=== PATIENT | female | born 2000 | race Caucasian/White ===

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

== ENCOUNTER → 2018-01-16 | Outpatient (CLI) | payer OTHER ==
--- NOTE | 2018-01-16 15:15 | US ---
EXAMINATION TYPE: Transabdominal DATE OF EXAM: 11/25/17 COMPARISON: NONE CLINICAL HISTORY: Z36 confirm dates. EXAM PERFORMED: Transabdominal (TA) EXAM MEASUREMENTS: GESTATIONAL AGE / DATING Physician Established: Not yet established Dates by LMP: LMP unknown Dates by First Scan: No previous this is first scan Dates by Current Scan for: (12 weeks/0 days) EDC: 07/31/2018 MATERNAL ANATOMY Uterus: 14.4 x 5.6 x 11.5 cm Right Ovary: 5.2 x 3.0 x 2.5 cm Left Ovary: 3.2 x 2.8 x 2.4 cm Post CDS / Adnexa: wnl Presence of free fluid: No Presence of corpus luteal cyst: No Presence of subchorionic bleed: Yes, left of the gestational sac measuring 1.4 x 0.5 x 1.1 cm GESTATION / SURVEY CRL: 5.3 cm (12 weeks/0 days) Heart Rate: 165 bpm Rhythm: Normal IUP: Viable IUP Date of LMP: Unknown Beta HcG (if available): Not available at this time Viable IUP with an MIKA of 07/31/2018 IMPRESSION: 1. Single intrauterine gestation estimated at 12 weeks 0 days gestation based on crown-rump length. T his would have a calculated EDC of 07/31/2018 based on crown-rump length. Cardiac activity measures 16 5 bpm.
== END | disposition home or self-care (01) ==
LOC: RADUSWWP 08:58
PROVIDERS: ATTEND Obstetrics & Gynecology
DX: Z36.89 Encounter for other specified antenatal screening (principal); Z3A.12 12 weeks gestation of pregnancy
CPT/HCPCS: 76801

== ENCOUNTER 2018-07-31 06:00 | Inpatient (IN) | payer OTHER ==
[2018-07-31] MEDS ORDERED: LIDOCAINE 0.5% (PF) 5 MG/ML (50 ML SDV) SQ PRN (06:56)
[2018-07-31] MEDS ORDERED: METHYLERGONOVINE 0.2 MG/ML 1 ML AMP IM PRN (06:56)
[2018-07-31] MEDS ORDERED: CARBOPROST TROMETHAMINE 250 MCG/ML 1 ML AMP IM PRN (06:56)
[2018-07-31] MEDS ORDERED: OXYTOCIN 10 UNIT/ML 1 ML VIAL IM PRN (06:56)
[2018-07-31] MEDS ORDERED: TERBUTALINE 1 MG/ML VIAL SQ PRN (06:56)
[2018-07-31] MEDS ORDERED: OXYTOCIN 20 UNITS/1000 ML NS 1,000 ML IV SCH ×2 (07:00→15:45)
[2018-07-31 07:08] LABS: Basophils % (A) 0 %; Eosinophils # (A) 0.2 k/uL (0-0.7); Eosinophils % (A) 2 %; HCT 37.4 % (34.0-46.0); HGB 11.9 gm/dL (11.4-16.0); Lymphocytes % (A) 30 %; MCH 28.5 pg (25.0-35.0); MCHC 31.9 g/dL (31.0-37.0); MCV 89.2 fL (80.0-100.0); Mean Platelet Volume 8.4; Monocytes # (A) 0.5 k/uL (0-1.0); Monocytes % (A) 5 %; Neutrophils # (A) 6.1 k/uL (1.3-7.7); Neutrophils % (A) 60 %; Platelet Count 200 k/uL (150-450); RBC 4.19 m/uL (3.80-5.40); RDW 14.2 % (11.5-15.5); WBC 10.1 k/uL (4.0-11.0)
[2018-07-31] MEDS: LACTATED RINGERS 1,000 ML IV SCH ×3 (07:12→23:52)
[2018-07-31 07:27] VITALS: BMI 35.9
[2018-07-31] MEDS ORDERED: ROPIVACAINE 5MG/ML 20ML VIAL ONE (11:52)
[2018-07-31] MEDS ORDERED: SODIUM CHLORIDE 0.9% 100 ML BAG ONE (11:52)
[2018-07-31] MEDS ORDERED: fentaNYL (PF) 50 MCG/ML 5 ML AMP ONE (11:52)
[2018-07-31] MEDS ORDERED: WITCH HAZEL 1 EACH MED..PAD TOPICAL PRN (15:33)
[2018-07-31] MEDS ORDERED: SIMETHICONE 80 MG CHEWABLE PO PRN (15:33)
[2018-07-31] MEDS ORDERED: ACETAMINOPHEN TAB 325 MG TAB PO PRN (15:33)
[2018-07-31] MEDS ORDERED: BENZOCAINE/MENTHOL SPRAY 1 GM/SPRAY AEROSOL TOPICAL PRN (15:33)
[2018-07-31] MEDS ORDERED: MEASLES-MUMPS-RUBELLA VACC/PF 12,500 UNIT/0.5 ML VIAL SQ ONE (15:33)
--- NOTE | 2018-07-31 17:29 | P.HPOB ---
History of Present Illness H&P Date: 07/31/18 Chief Complaint: Intrauterine at term: Induction of labor Jerilyn is a 17-year-old at 40 weeks gestation arise for induction of labor. She was dilated to approximately 1/2-2 cm 80% effaced -2 station. Artificial rupture membranes was performed and clear fluid is noted. There is a category 1 tracing. Her course overall has been unremarkable and she is feeling well at this time. . GBS was negative. Pertinent labs could A+ blood type Rh and it was negative , rubella is nonimmune, hepatitis B surface antigen was negative. VDRL was also nonreactive. She is aware of slight increased risk for need for section with induction of labor but overall she is doing well at this time. All questions are answered for her at this time. Past Medical History Past Medical History: No Reported History History of Any Multi-Drug Resistant Organisms: None Reported Past Surgical History: No Surgical Hx Reported Past Anesthesia/Blood Transfusion Reactions: No Reported Reaction Past Psychological History: No Psychological Hx Reported Smoking Status: Never smoker Past Alcohol Use History: None Reported Past Drug Use History: None Reported - Past Family History Father Family Medical History: No Reported History Medications and Allergies Home Medications Medication Instructions Recorded Confirmed Type No Known Home Medications 07/31/18 07/31/18 History Allergies Allergy/AdvReac Type Severity Reaction Status Date / Time amoxicillin Allergy Unknown Verified 07/31/18 06:55 Childhood Penicillins Allergy Unknown Verified 07/31/18 06:55 Childhood Exam Osteopathic Statement: *. No significant issues noted on an osteopathic structural exam other than those noted in the History and Physical/Consult. Vital Signs Temp Pulse Resp BP Pulse Ox 07/31/18 16:10 105 H 16 126/69 07/31/18 15:40 90 16 126/62 07/31/18 15:10 99 16 128/65 07/31/18 14:55 100 16 126/63 07/31/18 14:40 100 16 126/63 07/31/18 14:25 95 16 136/74 07/31/18 14:10 117 H 16 150/85 07/31/18 06:54 97.3 F L 106 H 16 121/81 100 Intake and Output 07/31/18 07/31/18 07/31/18 06:59 14:59 22:59 Output Total 0 0 Balance 0 0 Output: Urine 0 0 Straight 0 Emesis 0 0 Other: # Voids 0 1 # Bowel Movements 0 0 # Emeses 0 Weight 94.801 kg - OBG Physical Exam Breast: both: normal (no masses) Abdomen: bowel sounds normal, no diffuse tenderness, no bruit present, no guarding noted, no hepatomegaly, no splenomegaly, no mass Vulva: both: normal Vagina: normal moisture, no discharge Cervix: no lesion, no discharge Uterus: normal size, normal contour Adnexa: both: normal Anus/Rectum: normal perianal skin, no rectal mass, no hemorrhoids, heme negative Results Result Diagrams: 07/31/18 07:00
--- NOTE | 2018-07-31 17:31 | P.PROBDLV ---
Vaginal Delivery Note - . Vaginal Delivery Note: Patient progressed complete and pushing with spontaneous vaginal delivery of a viable female over a third-degree perineal laceration. During the latter stages of her pushing there was some decelerations in the heart rate and due to the low the baby was were some loss of heart rate on the monitor therefore an ISL was placed. Patient was having clear variable decelerations during her pushing phase the did recover rapidly once she stopped pushing. Oxygen was provided to the mother. Once baby's head was delivered a very tight nuchal cord was noted despite attempts at delivering the baby either through or bringing the cord over the head this was not possible therefore the cord was double clamped and cut and baby was rapidly delivered from that point forward. Baby was delivered from left occiput anterior position. Once baby was delivered mouth nares were bulb suctioned and baby was placed on mother's abdomen where the umbilical cord was clamped cut usual fashion. Placenta was then delivered intact and Pitocin was added to the IV. Once this was accomplished local anesthetic was injected into the peritoneum and it was repaired in a two-step process first by reapproximate some of the deep tissues with a small needle 3-0 Vicryl and then closing the remainder of the laceration as an episiotomy. Once this with was accomplished mother and was doing well. scores were 36 and 8 at one and 5 and 10 minutes and weight was 7 lbs. 10 oz. Baby was taken initially to special care nursery for evaluation.
[2018-07-31] MEDS: IBUPROFEN 600 MG TAB PO PRN (17:57)
[2018-07-31] MEDS: SENNOSIDES-DOCUSATE SODIUM 1 EACH TAB PO SCH (20:25)
[2018-08-01] MEDS: IBUPROFEN 600 MG TAB PO PRN ×2 (01:26→16:12)
[2018-08-01 07:20] LABS: Basophils % (A) 0 %; Eosinophils # (A) 0.1 k/uL (0-0.7); Eosinophils % (A) 1 %; HCT 31.1 % (34.0-46.0); HGB 10.1 gm/dL (11.4-16.0); Lymphocytes # (A) 2.8 k/uL (1.0-4.8); Lymphocytes % (A) 28 %; MCH 29.5 pg (25.0-35.0); MCHC 32.4 g/dL (31.0-37.0); Mean Platelet Volume 8.6; Monocytes # (A) 0.6 k/uL (0-1.0); Monocytes % (A) 6 %; Neutrophils # (A) 6.3 k/uL (1.3-7.7); Neutrophils % (A) 62 %; Platelet Count 155 k/uL (150-450); RBC 3.42 m/uL (3.80-5.40); RDW 14.2 % (11.5-15.5); WBC 10.1 k/uL (4.0-11.0)
[2018-08-01] MEDS: SENNOSIDES-DOCUSATE SODIUM 1 EACH TAB PO SCH (08:00)
[2018-08-01 09:16] VITALS: RESP 18
--- NOTE | 2018-08-01 11:35 | P.DS ---
Providers Date of admission: 07/31/18 06:39 Expected date of discharge: 08/01/18 Attending physician: Jim Strickland Primary care physician: Stated None Hospital Course: Jerilyn is doing very well day 1. She is ambulating, voiding, tolerating her diet. She voices no complaints. Vital signs are stable and afebrile. Heart regular, lungs clear, extremities are without pain. Abdomen is soft uterus is firm. Lochia is reported light. Her only issue thus far is that her back hurts from where she had multiple epidural attempts. She plans to be discharged home today. Prescription for Motrin and Tylenol No. 3 and sent to the pharmacy. All questions were answered for her prior to discharge. Discharge instructions were thoroughly reviewed. Follow-up with me in 6 weeks. Patient Condition at Discharge: Good Plan - Discharge Summary New Discharge Prescriptions: New Ibuprofen [Motrin] 600 mg PO Q6HR PRN #30 tab PRN Reason: Pain Acetaminophen-Codeine 300-30mg [Tylenol #3] 1 tab PO Q4H PRN #20 tablet PRN Reason: Pain Discharge Medication List Acetaminophen-Codeine 300-30mg [Tylenol #3] 1 tab PO Q4H PRN #20 tablet [Rx] Ibuprofen [Motrin] 600 mg PO Q6HR PRN #30 tab 08/01/18 [Rx] Follow up Appointment(s)/Referral(s): Jim Strickland DO [Doctor of Osteopathic Medicine] - 1 Week Activity/Diet/Wound Care/Special Instructions: No heavy lifting, limit stairs and driving, and pelvic rest. If any high temperatures, heavy bleeding, or severe pain call my office Discharge Disposition: HOME SELF-CARE
[2018-08-01 16:19] VITALS: BP 105/58; PULSE 116; TEMP 98.7
== END 2018-08-01 19:30 | disposition home or self-care (01) | DRG 768 ==
LOC: 4FBP 06:39
PROVIDERS: ADMIT Obstetrics & Gynecology; ATTEND Obstetrics & Gynecology
PROC: 10E0XZZ Delivery of Products of Conception, External Approach (ICD-10-PCS; principal; 2018-07-31)
PROC: 0DQR0ZZ Repair Anal Sphincter, Open Approach (ICD-10-PCS; 2018-07-31)
PROC: 0W8NXZZ Division of Female Perineum, External Approach (ICD-10-PCS; 2018-07-31)
PROC: 00HU33Z Insertion of Infusion Device into Spinal Canal, Percutaneous Approach (ICD-10-PCS; 2018-07-31)
PROC: 3E0R3BZ Introduction of Anesthetic Agent into Spinal Canal, Percutaneous Approach (ICD-10-PCS; 2018-07-31)
PROC: 3E0R33Z Introduction of Anti-inflammatory into Spinal Canal, Percutaneous Approach (ICD-10-PCS; 2018-07-31)
DX: O69.1XX0 Labor and delivery complicated by cord around neck, with compression, not applicable or unspecified (principal); Z37.0 Single live birth; O70.20 Third degree perineal laceration during delivery, unspecified; O76 Abnormality in fetal heart rate and rhythm complicating labor and delivery; Z3A.40 40 weeks gestation of pregnancy
CPT/HCPCS: 85025; 86850; 86900; 86901

== ENCOUNTER → 2019-04-20 | Outpatient (CLI) | payer OTHER ==
--- NOTE | 2019-04-20 14:59 | US ---
EXAMINATION TYPE: Transabdominal DATE OF EXAM: 04/20/2019 2:30 PM COMPARISON: NONE CLINICAL HISTORY: Z36 Confirm dates and viability. EXAM PERFORMED: Transabdominal (TA) EXAM MEASUREMENTS: GESTATIONAL AGE / DATING Physician Established: Not yet established Dates by LMP: Patient unsure of date Dates by First Scan: No previous this is first scan Dates by Current Scan for: ( 13 weeks/4 days) EDC: 10/22/19 MATERNAL ANATOMY Uterus: 17.2 x 5.3 x 10.6cm Right Ovary: 2.5 x 1.6 x 2.1cm Left Ovary: 2.9 x 1.9 x 1.8cm Post CDS / Adnexa: wnl Presence of free fluid: no GESTATION / SURVEY CRL: 7.4 (13 weeks/4 days) Yolk Sac (normal less than 6mm): not seen Heart Rate: 163 bpm Rhythm: Normal IUP: Live IUP Nuchal Translucency 10-14wks (normal less than 3mm): Date of LMP: patient can't remember Beta HcG (if available): Not available at this time IMPRESSION: Single live intrauterine with a sonographic age of 13 weeks and 4 days and estimated date o f delivery of 10/22/2019. Heart rate of 163 bpm. No complicating process is seen at this time.
== END | disposition home or self-care (01) ==
LOC: RADUSWWP 13:37
PROVIDERS: ATTEND Obstetrics & Gynecology
DX: Z34.01 Encounter for supervision of normal first pregnancy, first trimester (principal); Z3A.13 13 weeks gestation of pregnancy
CPT/HCPCS: 76801

== ENCOUNTER 2019-05-17 12:56 | Emergency (ER) | payer OTHER ==
[2019-05-17 13:30] VITALS: BP 106/67; PULSE 100; RESP 18; TEMP 98.2
[2019-05-17] MEDS ORDERED: SODIUM CHLORIDE 0.9% 1,000 ML IV STA (14:18)
--- NOTE | 2019-05-17 14:20 | ED ---
General Adult HPI - General Chief complaint: Abdominal Pain Stated complaint: cramping/17.5 wks preg Time Seen by Provider: 05/17/19 13:53 Source: patient, RN notes reviewed Mode of arrival: ambulatory Limitations: no limitations - History of Present Illness Initial comments: 18-year-old female currently 17 weeks presents to the emergency department for cramping. Patient had some cramping abdominal discomfort yesterday throughout the day. Denies any bleeding vaginally. Patient old her PUMPMAN today who offered to do heart tones in the office or send her to the ER for an ultrasound. Patient states she wanted to have an ultrasound so came here. Denies any cramping today whatsoever. Denies any vaginal bleeding today. States she just wants to make sure everything is okay with her baby.Patient has no other complaints at this time including shortness of breath, chest pain, abdominal pain, nausea or vomiting, headache, or visual changes. - Related Data Home Medications Medication Instructions Recorded Confirmed No Known Home Medications 05/17/19 05/17/19 Allergies Allergy/AdvReac Type Severity Reaction Status Date / Time amoxicillin Allergy Unknown Verified 05/17/19 14:10 Childhood Penicillins Allergy Unknown Verified 05/17/19 14:10 Childhood Review of Systems ROS Statement: Those systems with pertinent positive or pertinent negative responses have been documented in the HPI. ROS Other: All systems not noted in ROS Statement are negative. Past Medical History Past Medical History: No Reported History History of Any Multi-Drug Resistant Organisms: None Reported Past Surgical History: No Surgical Hx Reported Past Anesthesia/Blood Transfusion Reactions: No Reported Reaction Past Psychological History: No Psychological Hx Reported Smoking Status: Never smoker Past Alcohol Use History: None Reported Past Drug Use History: None Reported - Past Family History Father Family Medical History: No Reported History General Exam Limitations: no limitations General appearance: alert, in no apparent distress Head exam: Present: atraumatic, normocephalic, normal inspection Eye exam: Present: normal appearance, PERRL, EOMI. Absent: scleral icterus, conjunctival injection, periorbital swelling ENT exam: Present: normal exam, mucous membranes moist Neck exam: Present: normal inspection, full ROM. Absent: tenderness, me ningismus, lymphadenopathy Respiratory exam: Present: normal lung sounds bilaterally. Absent: respiratory distress, wheezes, rales, rhonchi, stridor Cardiovascular Exam: Present: regular rate, normal rhythm, normal heart sounds. Absent: systolic murmur, diastolic murmur, rubs, gallop, clicks GI/Abdominal exam: Present: soft, normal bowel sounds. Absent: distended, tenderness, guarding, rebound, rigid Neurological exam: Present: alert Psychiatric exam: Present: normal affect, normal mood Course Vital Signs 05/17/19 13:27 Temperature 98.2 F Pulse Rate 100 Respiratory 18 Rate Blood Pressure 106/67 O2 Sat by Pulse 97 Oximetry - Reevaluation(s) Reevaluation #1: 05/17/19 14:21 Patient refuses pelvic stating she is here for an ultrasound and does not want a pelvic. Does agree to blood work. Medical Decision Making - Medical Decision Making 18-year-old female presents for abdominal cramping yesterday. Patient is 17.5 weeks . No vaginal bleeding. No cramping at this time. Patient presents for ultrasound specifically. States her OB sent her over for ultrasound. She refused pelvic. Exam is documented. Ultrasound shows a single viable IUP with a heart rate of 162. Patient did not want to wait for results. Patient will follow up with her OB. - Lab Data Result diagrams: 05/17/19 14:40 05/17/19 14:40 Lab Results 05/17/19 05/17/19 05/17/19 Range/Units 14:20 14:40 14:40 WBC 14.7 H (4.0-11.0) k/uL RBC 4.56 (3.80-5.40) m/uL Hgb 13.6 (11.4-16.0) gm/dL Hct 40.3 (34.0-46.0) % MCV 88.2 (80.0-100.0) fL MCH 29.7 (25.0-35.0) pg MCHC 33.7 (31.0-37.0) g/dL RDW 13.6 (11.5-15.5) % Plt Count 179 (150-450) k/uL Neutrophils % 67 % Lymphocytes % 23 % Monocytes % 4 % Eosinophils % 4 % Basophils % 1 % Neutrophils # 9.8 H (1.3-7.7) k/uL Lymphocytes # 3.3 (1.0-4.8) k/uL Monocytes # 0.6 (0-1.0) k/uL Eosinophils # 0.5 (0-0.7) k/uL Basophils # 0.1 (0-0.2) k/uL Sodium 137 (137-145) mmol/L Potassium 4.0 (3.5-5.1) mmol/L Chloride 109 H (98-107) mmol/L Carbon Dioxide 18 L (22-30) mmol/L Anion Gap 10 mmol/L BUN 7 (7-17) mg/dL Creatinine 0.46 L (0.52-1.04) mg/dL Est GFR (CKD-EPI)AfAm >90 (>60 ml/min/1.73 sqM) Est GFR (CKD-EPI)NonAf >90 (>60 ml/min/1.73 sqM) Glucose 71 L (74-99) mg/dL Calcium 9.1 (8.4-10.2) mg/dL Total Bilirubin 0.4 (0.2-1.3) mg/dL AST 26 (14-36) U/L ALT 12 (9-52) U/L Alkaline Phosphatase 65 (38-126) U/L Total Protein 7.0 (6.3-8.2) g/dL Albumin 3.8 (3.5-5.0) g/dL Urine Color Yellow Urine Appearance Cloudy H (Clear) Urine pH 5.5 (5.0-8.0) Ur Specific [place] 1.017 (1.001-1.035) Urine Protein Negative (Negative) Urine Glucose (UA) Negative (Negative) Urine Ketones Negative (Negative) Urine Blood Negative (Negative) Urine Nitrite Negative (Negative) Urine Bilirubin Negative (Negative) Urine Urobilinogen <2.0 (<2.0) mg/dL Ur Leukocyte Esterase Small H (Negative) Urine RBC 1 (0-5) /hpf Urine WBC 2 (0-5) /hpf Ur Squamous Epith Cells 15 H (0-4) /hpf Urine Bacteria Rare H (None) /hpf Urine Mucus Few H (None) /hpf Disposition Clinical Impression: Abdominal pain in Disposition: HOME SELF-CARE Condition: Good Instructions (If sedation given, give patient instructions): Abdominal Pain in (ED) Additional Instructions: Please follow up on ultrasound results as well as with OB. Please return if you have any worsening symptoms. Is patient prescribed a controlled substance at d/c from ED?: No Referrals: Antony Ozuna MD [Primary Care Provider] - 1-2 days Time of Disposition: 15:33
[2019-05-17 14:38] LABS: Appearance,Urine Cloudy (Clear); Bacteria,Urine Rare /hpf; Bilirubin,Urine Negative (Negative); Blood,Urine Negative (Negative); Color,Urine Yellow; Glucose,Urine (UA) Negative (Negative); Ketones,Urine Negative (Negative); Leukocyte Esterase,Urine Small (Negative); Mucus,Urine Few /hpf; Nitrite,Urine Negative (Negative); PH, Urine 5.5 (5.0-8.0); Protein,Urine Negative (Negative); RBC,Urine 1 /hpf (0-5); Specific Gravity,Urine 1.017 (1.001-1.035); Squamous Epithelial Cell,Urine 15 /hpf (0-4); Urobilinogen,Urine <2.0 mg/dL (<2.0); WBC,Urine 2 /hpf (0-5)
[2019-05-17 14:53] LABS: Basophils # (A) 0.1 k/uL (0-0.2); Basophils % (A) 1 %; Eosinophils # (A) 0.5 k/uL (0-0.7); Eosinophils % (A) 4 %; HCT 40.3 % (34.0-46.0); HGB 13.6 gm/dL (11.4-16.0); Lymphocytes # (A) 3.3 k/uL (1.0-4.8); Lymphocytes % (A) 23 %; MCH 29.7 pg (25.0-35.0); MCHC 33.7 g/dL (31.0-37.0); MCV 88.2 fL (80.0-100.0); Mean Platelet Volume 7.7; Monocytes # (A) 0.6 k/uL (0-1.0); Monocytes % (A) 4 %; Neutrophils # (A) 9.8 k/uL (1.3-7.7); Neutrophils % (A) 67 %; Platelet Count 179 k/uL (150-450); RBC 4.56 m/uL (3.80-5.40); RDW 13.6 % (11.5-15.5); WBC 14.7 k/uL (4.0-11.0)
[2019-05-17 15:01] LABS: ALT 12 U/L (9-52); AST 26 U/L (14-36); African American GFR (CKD) >90 (>60 ml/min/1.73 sqM); Albumin 3.8 g/dL (3.5-5.0); Alkaline Phosphatase 65 U/L (38-126); Anion Gap 10 mmol/L; Blood Urea Nitrogen 7 mg/dL (7-17); Calcium 9.1 mg/dL (8.4-10.2); Carbon Dioxide 18 mmol/L (22-30); Chloride 109 mmol/L (98-107); Glucose 71 mg/dL (74-99); Sodium 137 mmol/L (137-145); Total Bilirubin 0.4 mg/dL (0.2-1.3)
--- NOTE | 2019-05-17 15:37 | US ---
EXAMINATION TYPE: US OB >= 14 wk fetus DATE OF EXAM: 05/17/2019 COMPARISON: US 2018 CLINICAL HISTORY: cramping, 17.5 weeks preg, sent in by OBLeft pelvic cramping a few days ago, gravid a 3, para 2 TECHNIQUE: Transabdominal (TA) GESTATIONAL AGE / DATING Physician Established: (17 weeks/5 days) EDC: 10/20/2019 Dates by LMP: Unknown Dates by First Scan: (17 weeks/3 days) EDC: 10/22/2019 Dates by Current Scan: (17 weeks/1 days) EDC: 10/24/2019 SURVEY IUP: Single PLACENTA: Anterior PREVIA: No Previa JOSIAS: 10.6 cm Normal CERVICAL LENGTH (transabdominal: norm > 3.0cm): 3.3 cm BIOMETRY PRESENTATION: Vertex LIE: Longitudinal BPD: 3.6 cm 17 weeks / 0 days HC: 13.3 cm 16 weeks / 6 days AC: 11.0 cm 16 weeks / 6 days FL: 2.5 cm 17 weeks / 4 days ESTIMATED WEIGHT IN GRAMS: 183.9 grams ESTIMATED WEIGHT IN LBS/OZ: 0 lbs. 6 oz. WEIGHT PERCENTAGE BASED ON ESTABLISHED DATES: 16% HC/AC: 1.21 Normal FL/AC: 22.93 HEART RATE: 162 bpm RHYTHM: Normal Viable single IUP measuring 17 weeks 1 day with a heart rate of 162bpm and an estimated delivery date of 10/24/2019. IMPRESSION: Limited survey. Single viable intrauterine corresponding to ultrasound age 17 weeks 1 day with estimated date of delivery 10/24/2019 by today's exam
== END 2019-05-17 15:51 | disposition home or self-care (01) ==
LOC: EC 12:56
DX: O99.89 Other specified diseases and conditions complicating pregnancy, childbirth and the puerperium (principal); R10.9 Unspecified abdominal pain; Z3A.17 17 weeks gestation of pregnancy; Z88.0 Allergy status to penicillin
CPT/HCPCS: 36415; 76805; 80053; 81001; 85025; 96360; 99284

== ENCOUNTER 2019-10-22 06:15 | Inpatient (IN) | payer OTHER ==
[2019-10-22] MEDS: LACTATED RINGERS 1,000 ML IV SCH ×2 (08:00→11:42)
[2019-10-22] MEDS ORDERED: CARBOPROST TROMETHAMINE 250 MCG/ML 1 ML AMP IM PRN (09:03)
[2019-10-22] MEDS ORDERED: LIDOCAINE 0.5% (PF) 5 MG/ML (50 ML SDV) SQ PRN (09:03)
[2019-10-22] MEDS ORDERED: TERBUTALINE 1 MG/ML VIAL SQ PRN (09:03)
[2019-10-22] MEDS ORDERED: OXYTOCIN 10 UNIT/ML 1 ML VIAL IM PRN (09:03)
[2019-10-22] MEDS ORDERED: METHYLERGONOVINE 0.2 MG/ML 1 ML AMP IM PRN (09:03)
[2019-10-22] MEDS ORDERED: OXYTOCIN 30 UNITS/500 ML NS 30 UNIT in SALINE 1 500ML.BAG IV SCH (09:15)
[2019-10-22 11:03] LABS: Basophils % (A) 0 %; Eosinophils # (A) 0.3 k/uL (0-0.7); Eosinophils % (A) 3 %; HCT 37.2 % (34.0-46.0); HGB 12.1 gm/dL (11.4-16.0); Lymphocytes # (A) 2.2 k/uL (1.0-4.8); Lymphocytes % (A) 23 %; MCH 28.2 pg (25.0-35.0); MCHC 32.5 g/dL (31.0-37.0); MCV 86.5 fL (80.0-100.0); Mean Platelet Volume 9.8; Monocytes # (A) 0.4 k/uL (0-1.0); Monocytes % (A) 4 %; Neutrophils # (A) 6.4 k/uL (1.3-7.7); Neutrophils % (A) 68 %; Platelet Count 210 k/uL (150-450); RDW 14.7 % (11.5-15.5); WBC 9.5 k/uL (3.8-10.6)
[2019-10-22] MEDS ORDERED: ROPIVACAINE 5MG/ML 20ML VIAL ONE (11:28)
[2019-10-22] MEDS ORDERED: SODIUM CHLORIDE 0.9% 100 ML BAG ONE (11:28)
[2019-10-22] MEDS ORDERED: fentaNYL (PF) 50 MCG/ML 5 ML AMP ONE (11:28)
[2019-10-22] MEDS ORDERED: WITCH HAZEL 1 EACH MED..PAD TOPICAL PRN (14:09)
[2019-10-22] MEDS ORDERED: LANOLIN CREAM 5 GM TUBE TOPICAL PRN (14:09)
[2019-10-22] MEDS ORDERED: diphenhydrAMINE 25 MG CAP PO PRN (14:09)
[2019-10-22] MEDS ORDERED: diphenhydrAMINE 50 MG/ML 1 ML VIAL IVP PRN ×2 (14:09)
[2019-10-22] MEDS ORDERED: HYDROCORTISONE 2.5% RECTAL CREAM 30 GM TUBE RECTAL PRN (14:09)
[2019-10-22] MEDS ORDERED: SIMETHICONE 80 MG CHEWABLE PO PRN (14:09)
[2019-10-22] MEDS ORDERED: BENZOCAINE/MENTHOL SPRAY 1 GM/SPRAY AEROSOL TOPICAL PRN (14:09)
[2019-10-22] MEDS ORDERED: ZOLPIDEM 5 MG TAB PO PRN (14:09)
[2019-10-22] MEDS ORDERED: diphenhydrAMINE 50 MG CAP PO PRN (14:09)
[2019-10-22] MEDS ORDERED: OXYTOCIN 20 UNITS/1000 ML NS 1,000 ML IV SCH (14:15)
--- NOTE | 2019-10-22 16:30 | P.HPOB ---
History of Present Illness H&P Date: 10/22/19 Chief Complaint: Intrauterine at term: Induction of labor Jerilyn is a 19-year-old at 40 weeks gestation arise for induction of labor. Her Precis course has been generally unremarkable with some gaps in care where she had missed for several visits. No other problems or concerns during the . Pertinent labs could A+ blood type Rh and it was negative, rubella immune, hepatitis B surface antigen/RPR/GBS were all negative. heart tones real category 1 tracing. She is dilated to 2 cm and artificial rupture membranes was performed with clear fluid noted. Past Medical History Past Medical History: No Reported History History of Any Multi-Drug Resistant Organisms: None Reported Past Surgical History: No Surgical Hx Reported Past Anesthesia/Blood Transfusion Reactions: No Reported Reaction Past Psychological History: No Psychological Hx Reported Smoking Status: Never smoker Past Alcohol Use History: None Reported Past Drug Use History: None Reported - Past Family History Father Family Medical History: No Reported History Medications and Allergies Home Medications Medication Instructions Recorded Confirmed Type No Known Home Medications 05/17/19 05/17/19 History Allergies Allergy/AdvReac Type Severity Reaction Status Date / Time amoxicillin Allergy Unknown Verified 05/17/19 14:10 Childhood Penicillins Allergy Unknown Verified 05/17/19 14:10 Childhood Exam Osteopathic Statement: *. No significant issues noted on an osteopathic structural exam other than those noted in the History and Physical/Consult. Vital Signs Temp Pulse Resp BP Pulse Ox 10/22/19 15:00 91 16 127/80 10/22/19 14:45 93 16 132/73 10/22/19 14:30 82 16 127/69 10/22/19 14:15 94 16 130/79 10/22/19 14:00 98.0 F 111 H 16 123/82 10/22/19 08:15 98.1 F 113 H 16 142/63 98 Intake and Output 10/22/19 10/22/19 10/22/19 06:59 14:59 22:59 Output Total 150 Balance -150 Output: Urine 150 Other: Weight 101.151 kg - OBG Physical Exam Breast: both: normal (no masses) Abdomen: bowel sounds normal, no diffuse tenderness, no bruit present, no guar ding noted, no hepatomegaly, no splenomegaly, no mass Vulva: both: normal Vagina: normal moisture, no discharge Cervix: no lesion, no discharge Uterus: normal size, normal contour Adnexa: both: normal Anus/Rectum: normal perianal skin, no rectal mass, no hemorrhoids, heme negative Results Result Diagrams: 10/22/19 08:10
--- NOTE | 2019-10-22 16:31 | P.PROBDLV ---
Vaginal Delivery Note - . Vaginal Delivery Note: Jerilyn progressed to complete and pushing with spontaneous vaginal delivery of a viable male over a second degree perineal laceration. Delivery occurred as I was walking into the room. Once baby was delivered mouth nares were bulb suctioned and the umbilical cord was clamped cut usual fashion with nursery personnel present to assume care. Placenta was then delivered intact and Pitocin was added to the IV. scores are 9 and 9 at one and 5 minutes respectively and the weight was 7 lbs. 2 oz. Second-degree midline laceration was then repaired with 3-0 Vicryl following 1% Xylocaine for analgesia. Both mother and baby are stable following delivery.
[2019-10-22] MEDS: IBUPROFEN 600 MG TAB PO PRN (17:57)
[2019-10-22] MEDS: SENNOSIDES-DOCUSATE SODIUM 1 EACH TAB PO SCH (21:00)
[2019-10-23 06:31] LABS: Basophils % (A) 0 %; Eosinophils # (A) 0.2 k/uL (0-0.7); Eosinophils % (A) 2 %; HCT 34.7 % (34.0-46.0); HGB 11.2 gm/dL (11.4-16.0); Lymphocytes # (A) 2.3 k/uL (1.0-4.8); Lymphocytes % (A) 23 %; MCH 27.9 pg (25.0-35.0); MCHC 32.1 g/dL (31.0-37.0); MCV 86.7 fL (80.0-100.0); Mean Platelet Volume 8.9; Monocytes # (A) 0.5 k/uL (0-1.0); Monocytes % (A) 5 %; Neutrophils # (A) 6.8 k/uL (1.3-7.7); Neutrophils % (A) 69 %; Platelet Count 151 k/uL (150-450); RBC 4.01 m/uL (3.80-5.40); RDW 14.5 % (11.5-15.5)
--- NOTE | 2019-10-23 07:49 | P.PNOBGVD ---
Subjective - Subjective Principal diagnosis: day 1 Interval history: Jerilyn is doing very well. She is involuting, voiding tolerating her diet. Her only complaint is that she is having significant contractions following having the baby. Otherwise she is doing well. At this time she is unsure if she wants to home or stay so will plan to keep her until tomorrow unless something changes. Patient reports: Reports appetite normal, Reports voiding normally, Reports pain well controlled, Reports ambulating normally : doing well Objective - Latest Vital Signs Latest vital signs: Vital Signs Temp Pulse Resp BP Pulse Ox 10/23/19 00:00 98.2 F 91 15 120/79 10/22/19 20:00 98 F 89 15 133/78 10/22/19 16:00 90 16 117/64 10/22/19 15:30 100 16 124/67 10/22/19 15:00 91 16 127/80 10/22/19 14:45 93 16 132/73 10/22/19 14:30 82 16 127/69 10/22/19 14:15 94 16 130/79 10/22/19 14:00 98.0 F 111 H 16 123/82 10/22/19 08:15 98.1 F 113 H 16 142/63 98 Intake and Output 10/22/19 10/23/19 10/23/19 22:59 06:59 14:59 Other: # Voids 1 1 - Exam Lungs: bilateral: normal Chest: Normal S1, Normal S2 Extremities: Present: normal Abdomen: Present: normal appearance, soft Uterus: Present: normal, firm - Labs Labs: Abnormal Lab Results - Last 24 Hours (Table) 10/23/19 Range/Units 05:47 Hgb 11.2 L (11.4-16.0) gm/dL
[2019-10-23] MEDS: IBUPROFEN 600 MG TAB PO PRN ×2 (08:05→16:43)
[2019-10-23] MEDS: SENNOSIDES-DOCUSATE SODIUM 1 EACH TAB PO SCH (08:06)
[2019-10-23] MEDS: ACETAMINOPHEN TAB 325 MG TAB PO PRN (18:54)
[2019-10-24] MEDS: SENNOSIDES-DOCUSATE SODIUM 1 EACH TAB PO SCH ×2 (01:02→08:46)
[2019-10-24] MEDS: IBUPROFEN 600 MG TAB PO PRN (01:13)
[2019-10-24] MEDS: ACETAMINOPHEN TAB 325 MG TAB PO PRN (08:47)
[2019-10-24 08:58] VITALS: BP 124/70; PULSE 79; RESP 17; TEMP 98.3
--- NOTE | 2019-10-24 09:46 | P.DS ---
Providers Date of admission: 10/22/19 07:30 Expected date of discharge: 10/24/19 Attending physician: Jim Strickland Primary care physician: Jim Strickland Hospital Course: Jerilyn is doing very well post day 2. She is involuting, voiding and tolerating her diet. She voices no complaints. Discharge instructions were thoroughly reviewed and all questions were answered for her prior to her discharge. On physical exam vital signs are stable and afebrile. Heart regular, lungs clear, extremities without pain. Abdomen soft uterus is firm and lochia is reported to be light. Assessment day 2. Plan discharged home follow up with me in 6 weeks. Prescription for Motrin was forwarded to her pharmacy. Patient Condition at Discharge: Good Plan - Discharge Summary New Discharge Prescriptions: New Ibuprofen [Motrin] 600 mg PO Q6HR PRN #30 tab PRN Reason: Pain Discharge Medication List Ibuprofen [Motrin] 600 mg PO Q6HR PRN #30 tab 10/23/19 [Rx] Follow up Appointment(s)/Referral(s): Jim Strickland DO [Primary Care Provider] - 1 Week Activity/Diet/Wound Care/Special Instructions: No heavy lifting, limit stairs and driving, and pelvic rest. If any high temperatures, heavy bleeding, or severe pain call my office Discharge Disposition: HOME SELF-CARE
== END 2019-10-24 11:05 | disposition home or self-care (01) | DRG 807 ==
LOC: 4FBP 07:30
PROVIDERS: ADMIT Obstetrics & Gynecology; ATTEND Obstetrics & Gynecology
PROC: 10907ZC Drainage of Amniotic Fluid, Therapeutic from Products of Conception, Via Natural or Artificial Opening (ICD-10-PCS; principal; 2019-10-22)
PROC: 3E033VJ Introduction of Other Hormone into Peripheral Vein, Percutaneous Approach (ICD-10-PCS; principal; 2019-10-22)
PROC: 3E0R3BZ Introduction of Anesthetic Agent into Spinal Canal, Percutaneous Approach (ICD-10-PCS; principal; 2019-10-22)
PROC: 0KQM0ZZ Repair Perineum Muscle, Open Approach (ICD-10-PCS; principal; 2019-10-22)
PROC: 00HU33Z Insertion of Infusion Device into Spinal Canal, Percutaneous Approach (ICD-10-PCS; principal; 2019-10-22)
PROC: 10E0XZZ Delivery of Products of Conception, External Approach (ICD-10-PCS; principal; 2019-10-22)
DX: O70.1 Second degree perineal laceration during delivery (principal); Z37.0 Single live birth; Z3A.40 40 weeks gestation of pregnancy; Z88.0 Allergy status to penicillin
CPT/HCPCS: 85025; 86850; 86900; 86901

== ENCOUNTER 2021-04-22 14:51 | Emergency (ER) | payer OTHER ==
[2021-04-22 14:56] VITALS: RESP 18; TEMP 97.7
[2021-04-22 15:28] LABS: Appearance,Urine Cloudy (Clear); Bacteria,Urine Rare /hpf; Bilirubin,Urine Negative (Negative); Blood,Urine Large (Negative); Color,Urine Yellow; Glucose,Urine (UA) Negative (Negative); Ketones,Urine Negative (Negative); Leukocyte Esterase,Urine Small (Negative); Mucus,Urine Rare /hpf; Nitrite,Urine Negative (Negative); Protein,Urine Trace (Negative); RBC,Urine <1 /hpf (0-5); Specific Gravity,Urine 1.028 (1.001-1.035); Squamous Epithelial Cell,Urine 21 /hpf (0-4); Urobilinogen,Urine <2.0 mg/dL (<2.0); WBC,Urine 6 /hpf (0-5)
--- NOTE | 2021-04-22 15:40 | ED ---
Female Urogenital HPI - General Chief complaint: Vaginal Bleeding Stated complaint: vaginal bleeding, 16 weeks Time Seen by Provider: 04/22/21 15:06 Source: patient, RN notes reviewed Mode of arrival: ambulatory Limitations: no limitations - History of Present Illness Initial comments: This is a 20-year-old female presents emergency Department chief complaint of vaginal spotting in . Patient is A0 currently 16 weeks states that she ultrasound on Friday which was unremarkable urinalysis unremarkable. Patient noticed she started having some spotting when she urinated. Patient has no abdominal pain no flank pain no back pain states there is no clotting no other complaints. - Related Data Previous Rx's Medication Instructions Recorded Ibuprofen [Motrin] 600 mg PO Q6HR PRN #30 tab 10/23/19 Allergies Allergy/AdvReac Type Severity Reaction Status Date / Time amoxicillin Allergy Unknown Verified 04/22/21 14:56 Childhood Penicillins Allergy Unknown Verified 04/22/21 14:56 Childhood Review of Systems ROS Statement: Those systems with pertinent positive or pertinent negative responses have been documented in the HPI. ROS Other: All systems not noted in ROS Statement are negative. Past Medical History Past Medical History: No Reported History History of Any Multi-Drug Resistant Organisms: None Reported Past Surgical History: No Surgical Hx Reported Past Anesthesia/Blood Transfusion Reactions: No Reported Reaction Past Psychological History: No Psychological Hx Reported Smoking Status: Never smoker Past Alcohol Use History: None Reported Past Drug Use History: None Reported - Past Family History Father Family Medical History: No Reported History General Exam Limitations: no limitations General appearance: alert, in no apparent distress Head exam: Present: atraumatic, normocephalic, normal inspection Eye exam: Present: normal appearance, PERRL, EOMI. Absent: scleral icterus, conjunctival injection, periorbital swelling ENT exam: Present: normal exam, normal oropharynx, mucous membranes moist Neck exam: Present: normal inspection, full ROM. Absent: tenderness, meningismus, lymphadenopathy Respiratory exam: Present: normal lung sounds bilaterally. Absent: respiratory distress, wheezes, rales, rhonchi, stridor Cardiovascular Exam: Present: regular rate, normal rhythm, normal heart sounds. Absent: systolic murmur, diastolic murmur, rubs, gallop, clicks Course Vital Signs 04/22/21 14:53 Temperature 97.7 F Pulse Rate 101 H Respiratory 18 Rate Blood Pressure 118/71 O2 Sat by Pulse 98 Oximetry Medical Decision Making - Medical Decision Making IS UNREMARKABLE. THERE IS NO OBVIOUS REASON FOR PATIENT'S BLEEDING AT THIS TIME SHE IS ASYMPTOMATIC CURRENTLY WILL BE DISCHARGED IN STABLE CONDITION. - Lab Data Lab Results 04/22/21 Range/Units 15:17 Urine Color Yellow Urine Appearance Cloudy H (Clear) Urine pH 6.0 (5.0-8.0) Ur Specific [place] 1.028 (1.001-1.035) Urine Protein Trace H (Negative) Urine Glucose (UA) Negative (Negative) Urine Ketones Negative (Negative) Urine Blood Large H (Negative) Urine Nitrite Negative (Negative) Urine Bilirubin Negative (Negative) Urine Urobilinogen <2.0 (<2.0) mg/dL Ur Leukocyte Esterase Small H (Negative) Urine RBC <1 (0-5) /hpf Urine WBC 6 H (0-5) /hpf Ur Squamous Epith Cells 21 H (0-4) /hpf Urine Bacteria Rare H (None) /hpf Urine Mucus Rare H (None) /hpf Disposition Clinical Impression: Vaginal bleeding in patient after first trimester Disposition: HOME SELF-CARE Condition: Stable Instructions (If sedation given, give patient instructions): (ED) Additional Instructions: Please return to the Emergency Department if symptoms worsen or any other concerns. Is patient prescribed a controlled substance at d/c from ED?: No Referrals: Jim Strickland DO [Doctor of Osteopathic Medicine] - 1-2 days Time of Disposition: 16:34
--- NOTE | 2021-04-22 16:23 | US ---
EXAMINATION TYPE: US OB >= 14 wk fetus DATE OF EXAM: 04/22/2021 COMPARISON: None CLINICAL HISTORY: spotting TECHNIQUE: Transabdominal (TA) GESTATIONAL AGE / DATING Physician Established: (15 weeks/6 days) EDC: 10/08/2021 Dates by LMP: unknown Dates by First Scan: No previous this is first scan Dates by Current Scan: (16 weeks/1 days) EDC: 09/05/2021 Beta HCG (if available): not available SURVEY IUP: Single PLACENTA: Posterior PREVIA: No Previa JOSIAS: 13.7 cm Normal CERVICAL LENGTH (transabdominal: norm > 3.0cm): 3.5 cm BIOMETRY PRESENTATION: Vertex BPD: 3.2 cm 16 weeks / 0 days HC: 12.1 cm 16 weeks / 0 days AC: 10.0 cm 16 weeks / 0 days FL: 2.1 cm 16 weeks / 1 days ESTIMATED WEIGHT IN GRAMS: 144.34 grams ESTIMATED WEIGHT IN LBS/OZ: 0 lbs. 5 oz. WEIGHT PERCENTAGE BASED ON ESTABLISHED DATES: 56.2% HC/AC: 1.2 Normal FL/AC: 20.5 Normal HEART RATE: 159 bpm RHYTHM: Normal Viable IUP that correlates with patient's MIKA by physician. IMPRESSION: Ultrasound gestational age is 16 weeks and 1 day. No complicating process seen.
[2021-04-22 17:02] VITALS: BP 110/60; PULSE 88
== END 2021-04-22 17:02 | disposition home or self-care (01) ==
LOC: EC 14:51
DX: O20.9 Hemorrhage in early pregnancy, unspecified (principal); Z88.0 Allergy status to penicillin; Z3A.16 16 weeks gestation of pregnancy
CPT/HCPCS: 76805; 81001; 99284

== ENCOUNTER 2021-09-26 06:15 | Inpatient (IN) | payer OTHER ==
[2021-09-26] MEDS ORDERED: CARBOPROST TROMETHAMINE 250 MCG/ML 1 ML AMP IM PRN (07:08)
[2021-09-26] MEDS ORDERED: LIDOCAINE 1% (PF) 10 MG/ML (30 ML SDV) SQ PRN (07:08)
[2021-09-26] MEDS ORDERED: METHYLERGONOVINE 0.2 MG/ML 1 ML AMP IM PRN (07:08)
[2021-09-26] MEDS ORDERED: TERBUTALINE 1 MG/ML VIAL SQ PRN (07:08)
[2021-09-26] MEDS ORDERED: OXYTOCIN 10 UNIT/ML 1 ML VIAL IM PRN (07:08)
[2021-09-26] MEDS ORDERED: OXYTOCIN 30 UNITS/500 ML NS 30 UNIT in SALINE 1 500ML.BAG IV SCH (07:15)
[2021-09-26] MEDS: LACTATED RINGERS 1,000 ML IV SCH ×3 (07:30→14:36)
[2021-09-26 07:32] LABS: Basophils % (A) 0 %; Eosinophils # (A) 0.1 k/uL (0-0.7); Eosinophils % (A) 1 %; HGB 10.6 gm/dL (11.4-16.0); Hypochromasia Slight; Lymphocytes # (A) 2.4 k/uL (1.0-4.8); Lymphocytes % (A) 22 %; MCH 28.5 pg (25.0-35.0); MCHC 33.3 g/dL (31.0-37.0); MCV 85.6 fL (80.0-100.0); Mean Platelet Volume 8.9; Monocytes # (A) 0.6 k/uL (0-1.0); Monocytes % (A) 6 %; Neutrophils # (A) 7.3 k/uL (1.3-7.7); Neutrophils % (A) 69 %; Platelet Count 205 k/uL (150-450); RBC 3.73 m/uL (3.80-5.40); RDW 15.1 % (11.5-15.5); WBC 10.7 k/uL (3.8-10.6)
--- NOTE | 2021-09-26 08:29 | P.HPOB ---
History of Present Illness H&P Date: 09/26/21 Chief Complaint: Intrauterine at term: Induction of labor Jerilyn is a 21-year-old at 39 weeks gestation arise for induction of labor. Her course has been generally unremarkable and she is feeling well at this time. Pertinent labs could A+ blood type, Rh and it was negative, rubella is immune, hepatitis B surface antigen and group B strep were negative. She plans she is an epidural for analgesia today. All questions are answered for she and her family. Category 1 tracing is noted. She is dilated 1/2 cm 60% effaced and -3 station. Artificial rupture membranes was performed and clear fluid is noted. We'll plan Pitocin augmentation of labor. Past Medical History Past Medical History: No Reported History History of Any Multi-Drug Resistant Organisms: None Reported Past Surgical History: No Surgical Hx Reported Past Anesthesia/Blood Transfusion Reactions: No Reported Reaction Past Psychological History: No Psychological Hx Reported Smoking Status: Never smoker Past Alcohol Use History: None Reported Past Drug Use History: None Reported - Past Family History Father Family Medical History: No Reported History Medications and Allergies Home Medications Medication Instructions Recorded Confirmed Type No Known Home Medications 04/22/21 09/26/21 History Allergies Allergy/AdvReac Type Severity Reaction Status Date / Time amoxicillin Allergy Unknown Verified 09/26/21 07:08 Childhood Penicillins Allergy Unknown Verified 09/26/21 07:08 Childhood Exam Osteopathic Statement: *. No significant issues noted on an osteopathic structural exam other than those noted in the History and Physical/Consult. Vital Signs Temp Pulse Resp BP 09/26/21 07:00 98.4 F 130 H 18 139/79 Intake and Output 09/25/21 09/26/21 09/26/21 22:59 06:59 14:59 Other: Weight 107.048 kg - OBG Physical Exam Breast: both: normal (no masses) Abdomen: bowel sounds normal, no diffuse tenderness, no bruit present, no guarding noted, no hepatomegaly, no splenomegaly, no mass Vulva: both: normal Vagina: normal moisture, no discharge Cervix: no lesion, no discharge Uterus: normal size, normal contour Adnexa: both: normal Anus/Rectum: normal perianal skin, no rectal mass, no hemorrhoids, heme negative Results Result Diagrams: 09/26/21 07:14 Abnormal Lab Results - Last 24 Hours (Table) 09/26/21 Range/Units 07:14 WBC 10.7 H (3.8-10.6) k/uL RBC 3.73 L (3.80-5.40) m/uL Hgb 10.6 L (11.4-16.0) gm/dL Hct 32.0 L (34.0-46.0) %
[2021-09-26] MEDS ORDERED: BUTORPHANOL 1 MG/ML 1 ML VIAL IV PRN (08:41)
[2021-09-26] MEDS ORDERED: fentaNYL (PF) 50 MCG/ML 5 ML AMP ONE (11:56)
[2021-09-26] MEDS ORDERED: ROPIVACAINE 5MG/ML 20ML VIAL ONE (11:56)
[2021-09-26] MEDS ORDERED: SODIUM CHLORIDE 0.9% 100 ML BAG ONE (11:56)
[2021-09-26] MEDS ORDERED: BENZOCAINE/MENTHOL SPRAY 1 GM/SPRAY AEROSOL TOPICAL PRN (19:00)
[2021-09-26] MEDS ORDERED: diphenhydrAMINE 25 MG CAP PO PRN (19:00)
[2021-09-26] MEDS ORDERED: HYDROCORTISONE 2.5% RECTAL CREAM 30 GM TUBE RECTAL PRN (19:00)
[2021-09-26] MEDS ORDERED: diphenhydrAMINE 50 MG/ML 1 ML VIAL IVP PRN ×2 (19:00)
[2021-09-26] MEDS ORDERED: LANOLIN CREAM 5 GM TUBE TOPICAL PRN (19:00)
[2021-09-26] MEDS ORDERED: ZOLPIDEM 5 MG TAB PO PRN (19:00)
[2021-09-26] MEDS ORDERED: diphenhydrAMINE 50 MG CAP PO PRN (19:00)
[2021-09-26] MEDS ORDERED: SIMETHICONE 80 MG CHEWABLE PO PRN (19:00)
--- NOTE | 2021-09-26 19:02 | P.PROBDLV ---
Vaginal Delivery Note - . Vaginal Delivery Note: Patient progressed complete and pushing with spontaneous vaginal delivery of a viable female over secondary perineal laceration. Falling deliver the head from left occiput anterior position interim posterior shoulders were easily delivered with gentle downward upper traction followed by the remainder the baby. Mouth and nares were then bulb suctioned and baby was placed on mother's abdomen where the umbilical cord was allowed to pulsate for 30 seconds prior to clamping and cutting. Nursery personnel was present and assumed care. Placenta was then delivered intact Pitocin was added to the IV. scores were 8 and 9 at one and 5 minutes respectively weight was 7 lbs. 1 oz. Second degree perineal laceration was then repaired in usual fashion following 1% Xylocaine for analgesia with 3-0 Vicryl.
[2021-09-26] MEDS: ACETAMINOPHEN TAB 325 MG TAB PO PRN (21:02)
[2021-09-26] MEDS: SENNOSIDES-DOCUSATE SODIUM 1 EACH TAB PO SCH (21:03)
[2021-09-26] MEDS: IBUPROFEN 600 MG TAB PO SCH (22:02)
[2021-09-27] MEDS: ACETAMINOPHEN TAB 325 MG TAB PO PRN (03:26)
--- NOTE | 2021-09-27 08:44 | P.PNOBGVD ---
Subjective - Subjective Principal diagnosis: day 1 Interval history: Jerilyn is doing very well this morning. She is ambulating, voiding and tolerating her diet. Will plan continue care today with likely discharge home tomorrow. Patient reports: Reports appetite normal, Reports voiding normally, Reports pain well controlled, Reports ambulating normally [place]: doing well Objective - Latest Vital Signs Latest vital signs: Vital Signs Temp Pulse Resp BP Pulse Ox 09/27/21 04:00 97.7 F 105 H 16 115/73 09/27/21 00:00 98.4 F 108 H 15 94/60 98 09/26/21 21:03 99.1 F 103 H 15 118/67 09/26/21 20:25 99.8 F H 104 H 16 113/56 104 H 09/26/21 20:03 110 H 16 09/26/21 19:48 98.1 F 111 H 18 101/59 09/26/21 19:33 98.1 F 113 H 18 125/58 09/26/21 19:12 98.3 F 122 H 15 118/55 122 H 09/26/21 19:03 98.3 F 120 H 16 120/58 Intake and Output 09/26/21 09/27/21 09/27/21 22:59 06:59 14:59 Intake Total 748.000 480 Balance 748.000 480 Intake: Intake, IV Titration 268.000 Amount Oxytocin 30 Units/500 ml 268.000 Ns 30 unit In Saline 1 500ml.bag @ Per Protocol IV .Q0M [place] Rx#:[id number] Oral 480 480 Other: # Voids 2 1 - Exam Lungs: bilateral: normal Chest: Normal S1, Normal S2 Extremities: Present: normal Abdomen: Present: normal appearance, soft Uterus: Present: normal, firm
[2021-09-27] MEDS: IBUPROFEN 600 MG TAB PO SCH ×4 (09:04→16:27)
[2021-09-27] MEDS: SENNOSIDES-DOCUSATE SODIUM 1 EACH TAB PO SCH ×2 (09:05→20:24)
[2021-09-27] MEDS: LACTATED RINGERS 1,000 ML IV SCH (09:43)
[2021-09-27 16:53] VITALS: RESP 16
[2021-09-28] MEDS: IBUPROFEN 600 MG TAB PO SCH (02:54)
--- NOTE | 2021-09-28 08:12 | P.DS ---
Providers Date of admission: 09/26/21 06:49 Expected date of discharge: 09/28/21 Attending physician: Jim Strickland Primary care physician: Stated None Hospital Course: Jerilyn is doing very well day 2. She is ambulating, voiding and tolerating a diet. She voices no complaints and is stable for discharge this time. Vital signs are stable and afebrile. Heart is regular, lungs are clear, extremities without pain. Abdomen soft and uterus is firm below the umbilicus. Lochia is reported light. Assessment day 2. Plan discharged home follow up with our office in 6 weeks. Prescription for Motrin was [facility]. Patient Condition at Discharge: Good Plan - Discharge Summary New Discharge Prescriptions: New Docusate [Colace] 100 mg PO DAILY PRN 20 Days #20 capsule PRN Reason: Constipation Ibuprofen [Motrin] 600 mg PO Q6HR PRN #30 tab PRN Reason: Pain Discharge Medication List Docusate [Colace] 100 mg PO DAILY PRN 20 Days #20 capsule 09/27/21 [Rx] Ibuprofen [Motrin] 600 mg PO Q6HR PRN #30 tab 09/27/21 [Rx] Follow up Appointment(s)/Referral(s): Carrie Rojas DO [Doctor of Osteopathic Medicine] - 11/05/21 11:15 am Activity/Diet/Wound Care/Special Instructions: No heavy lifting, limit stairs and driving, and pelvic rest. If any high temperatures, heavy bleeding, or severe pain call my office Discharge Disposition: HOME SELF-CARE
[2021-09-28] MEDS: ACETAMINOPHEN TAB 325 MG TAB PO PRN (08:30)
[2021-09-28] MEDS: SENNOSIDES-DOCUSATE SODIUM 1 EACH TAB PO SCH (08:30)
[2021-09-28 08:53] VITALS: BP 129/77; PULSE 77; TEMP 97.6
== END 2021-09-28 16:00 | disposition home or self-care (01) | DRG 807 ==
LOC: 4FBP 06:49
PROVIDERS: ADMIT Obstetrics & Gynecology; ATTEND Obstetrics & Gynecology
PROC: 10E0XZZ Delivery of Products of Conception, External Approach (ICD-10-PCS; principal; 2021-09-26)
PROC: 0KQM0ZZ Repair Perineum Muscle, Open Approach (ICD-10-PCS; 2021-09-26)
PROC: 4A0HXCZ Measurement of Products of Conception, Cardiac Rate, External Approach (ICD-10-PCS; 2021-09-26)
PROC: 10907ZC Drainage of Amniotic Fluid, Therapeutic from Products of Conception, Via Natural or Artificial Opening (ICD-10-PCS; 2021-09-26)
PROC: 3E033VJ Introduction of Other Hormone into Peripheral Vein, Percutaneous Approach (ICD-10-PCS; 2021-09-26)
DX: O26.893 Other specified pregnancy related conditions, third trimester (principal); Z37.0 Single live birth; Z67.41 Type O blood, Rh negative; O70.1 Second degree perineal laceration during delivery; Z3A.39 39 weeks gestation of pregnancy; Z88.1 Allergy status to other antibiotic agents; Z88.0 Allergy status to penicillin
CPT/HCPCS: 85025; 86850; 86900; 86901

== ENCOUNTER 2022-11-12 14:40 | Emergency (ER) | payer OTHER ==
--- NOTE | 2022-11-12 15:18 | ED ---
Female Urogenital HPI - General Source: patient, RN notes reviewed Mode of arrival: ambulatory Limitations: no limitations - History of Present Illness Last Menstrual Period: 09/08/22 <Mary Byrnes - Last Filed: 11/12/22 15:18> <Rochelle Castro - Last Filed: 11/12/22 23:21> - General Chief complaint: Abdominal Pain Stated complaint: Abd cramping Time Seen by Provider: 11/12/22 15:12 - History of Present Illness Initial comments: This is a 22-year-old female who presents to the emergency department for evaluation per the instruction of her TOOLING MECHANIC. States that her last menstrual period was 09/19/22 and 2 weeks ago she had a positive at home tests. She made an appointment at [facility] and was seen there today. She had an abdominal and transvaginal ultrasound, however they could not identify anything in the uterus. They subsequently ran a urine test on her, which did return positive. The office was concerned about an ectopic , and instructed her to come to the emergency department for blood work and further evaluation. Denies any abdominal pain, nausea, vomiting, vaginal bleeding, or vaginal discharge. Patient is . (Mary Byrnes) Quick note reviewed: This is a 22-year-old female who presents to the emergency department for test. He reports that her last menstrual period was 09/19/2022. She reports that she has had 3 at home positive test. She was seen at her family planning office earlier today where they did an ultrasound however they cannot a done a fight a viable . She reports that they had a positive urine test in their office and recommended that she be evaluated in the emergency department for lab work and further imaging. She denies any fever, chills, flank pain, abdominal pain, nausea, vomiting, vaginal bleeding, vaginal cramping, back pain. Patient is . She denies history of miscarriage or ectopic . (Rochelle Castro) - Related Data Previous Rx's Medication Instructions Recorded Docusate [Colace] 100 mg PO DAILY PRN 20 Days #20 09/27/21 capsule Ibuprofen [Motrin] 600 mg PO Q6HR PRN #30 tab 09/27/21 Allergies Allergy/AdvReac Type Severity Reaction Status Date / Time amoxicillin Allergy Unknown Verified 09/26/21 07:08 Childhood Penicillins Allergy Unknown Verified 09/26/21 07:08 Childhood Review of Systems ROS Other: All systems not noted in ROS Statement are negative. <Mary Byrnes - Last Filed: 11/12/22 15:18> ROS Other: All systems not noted in ROS Statement are negative. <Rochelle Castro - Last Filed: 11/12/22 23:21> ROS Statement: Those systems with pertinent positive or pertinent negative responses have been documented in the HPI. Past Medical History Past Medical History: No Reported History History of Any Multi-Drug Resistant Organisms: None Reported Past Surgical History: No Surgical Hx Reported Past Anesthesia/Blood Transfusion Reactions: No Reported Reaction Past Psychological History: No Psychological Hx Reported Smoking Status: Never smoker Past Alcohol Use History: None Reported Past Drug Use History: None Reported - Past Family History Father Family Medical History: No Reported History <Mary Byrnes - Last Filed: 11/12/22 15:18> General Exam Limitations: no limitations <Mary Byrnes - Last Filed: 11/12/22 15:18> General appearance: alert, in no apparent distress Head exam: Present: atraumatic, normocephalic, normal inspection Eye exam: Present: normal appearance, PERRL, EOMI. Absent: scleral icterus, conjunctival injection, periorbital swelling ENT exam: Present: normal exam, mucous membranes moist Neck exam: Present: normal inspection. Absent: tenderness, meningismus, lymphadenopathy Respiratory exam: Present: normal lung sounds bilaterally. Absent: respiratory distress, wheezes, rales, rhonchi, stridor Cardiovascular Exam: Present: regular rate, normal rhythm, normal heart sounds. Absent: systolic murmur, diastolic murmur, rubs, gallop, clicks GI/Abdominal exam: Present: soft, normal bowel sounds. Absent: distended, tenderness, guarding, rebound, rigid Extremities exam: Present: normal inspection, full ROM, normal capillary refill. Absent: tenderness, pedal edema, joint swelling, calf tenderness Back exam: Present: normal inspection Neurological exam: Present: alert, oriented X3, CN II-XII intact Psychiatric exam: Present: normal affect, normal mood Skin exam: Present: warm, dry, intact, normal color. Absent: rash <Rochelle Castro - Last Filed: 11/12/22 23:21> - General Exam Comments Initial Comments: Visual Physical Exam Vital signs reviewed General: Well-appearing, nontoxic, no acute distress. Head: Normocephalic, atraumatic Eyes: PERRLA, EOMI ENT: Airway patent Chest: Nonlabored breathing Skin: No visual rash, normal skin tone Neuro: Alert and oriented 3 Musculoskeletal: No gross abnormalities (Vogley,Mary) Course Vital Signs 11/12/22 11/12/22 11/12/22 14:41 17:48 18:28 Temperature 98.8 F 98.5 F 97.6 F Pulse Rate 110 H 100 76 Respiratory 20 20 16 Rate Blood Pressure 122/81 172/72 120/78 O2 Sat by Pulse 100 98 100 Oximetry Medical Decision Making - Lab Data Result diagrams: 11/12/22 15:14 11/12/22 15:14 <Rochelle Castro - Last Filed: 11/12/22 23:21> - Medical Decision Making Was pt. sent in by a medical professional or institution (Dr. PA, SERVICE OPERATOR, urgent care, hospital, or retirement...) When possible be specific @ -[No] Did you speak to anyone other than the patient for history (EMS, parent, family, police, friend...)? What history was obtained from this source @ -[No] Did you review nursing and triage notes (agree or disagree)? Why? @ -[I reviewed and agree with nursing and triage notes] Were old charts reviewed (outside hosp., previous admission, EMS record, old EKG, old radiological studies, urgent care reports/EKG's, retirement records)? Report findings @ -[No old charts were reviewed] Differential Diagnosis (chest pain, altered mental status, abdominal pain women, abdominal pain men, vaginal bleeding, weakness, fever, dyspnea, syncope, headache, dizziness, GI bleed, back pain, seizure, CVA, palpatations, mental health, musculoskeletal)? @ -[not applicable] EKG interpreted by me (3pts min.). @ -[As above] X-rays interpreted by me (1pt min.). @ -[None done] CT interpreted by me (1pt min.). @ -[None done] U/S interpreted by me (1pt. min.). @ -Transvaginal ultrasound without any evidence of an IUP at this time however with the positive beta hCG there is recommendation for serial ultrasound in 7-10 days with serial hCG drawn in 48 hours What testing was considered but not performed or refused? (CT, X-rays, U/S, labs)? Why? @ -[None] What meds were considered but not given or refused? Why? @ -[None] Did you discuss the management of the patient with other professionals (professionals i.e. , PA, SERVICE OPERATOR, lab, RT, psych nurse, social secretary, research methods instructor, teacher, campus safety officer, case therapist)? Give summary @ -[No] Was smoking cessation discussed for >3mins.? @ -[No] Was critical care preformed (if so, how long)? @ -[No] Were there social determinants of health that impacted care today? How? (Homelessness, low income, unemployed, alcoholism, drug addiction, transportation, low edu. Level, literacy, decrease access to med. care, mcc, rehab)? @ -[No] Was there de-escalation of care discussed even if they declined (Discuss DNR or withdrawal of care, Hospice)? DNR status @ -[No] What co-morbidities impacted this encounter? (DM, HTN, Smoking, COPD, CAD, Cancer, CVA, ARF, Chemo, Hep., AIDS, mental health diagnosis, sleep apnea, morbid obesity)? @ -[None] Was patient admitted / discharged? Hospital course, mention meds given and route, prescriptions, significant lab abnormalities, going to OR and other pertinent info. @ -Discharged. This is a 22-year-old female who presents the emergency department with a chief complaint of test. Patient had a thorough history and physical exam performed physical exam is essentially unremarkable. Heart rate regular rate and rhythm, lungs clear to auscultation bilaterally. Beta hCG results are 999. Pelvic ultrasound does not reveal an IUP at this time. I discussed the results in detail with the patient verbalized understanding. She is encouraged to return to this facility to get serial hCG hormone drawn in 48 hours. She is also encouraged to follow up with Dr. Rojas, TOOLING MECHANIC within 1-2 days. She was discharged in stable condition and return precautions were discussed at length. She was discharged in stable condition. Case discussed with Dr. Jones [facility] who agrees with plan of care Undiagnosed new problem with uncertain prognosis? @ -[No] Drug Therapy requiring intensive monitoring for toxicity (Heparin, Nitro, Insulin, Cardizem)? @ -[No] Were any procedures done? @ -[No] Diagnosis/symptom? @ -early vs. threatened miscarriage Acute, or Chronic, or Acute on Chronic? @ -acute Uncomplicated (without systemic symptoms) or Complicated (systemic symptoms)? @ -uncomplicated Side effects of treatment? @ -[No] Exacerbation, Progression, or Severe Exacerbation? @ -[No] Poses a threat to life or bodily function? How? (Chest pain, USA, NM, pneumonia, PE, COPD, DKA, ARF, appy, cholecystitis, CVA, Diverticulitis, Homicidal, Suicidal, threat to staff... and all critical care pts) @ -low likelihood (Rochelle Castro) - Lab Data Lab Results 11/12/22 11/12/22 11/12/22 Range/Units 15:14 15:14 15:14 WBC 8.9 (3.8-10.6) k/uL RBC 4.67 (3.80-5.40) m/uL Hgb 13.9 (11.4-16.0) gm/dL Hct 41.2 (34.0-46.0) % MCV 88.3 (80.0-100.0) fL MCH 29.8 (25.0-35.0) pg MCHC 33.7 (31.0-37.0) g/dL RDW 12.8 (11.5-15.5) % Plt Count 265 (150-450) k/uL MPV 8.1 Neutrophils % 60 % Lymphocytes % 31 % Monocytes % 6 % Eosinophils % 1 % Basophils % 1 % Neutrophils # 5.3 (1.3-7.7) k/uL Lymphocytes # 2.8 (1.0-4.8) k/uL Monocytes # 0.5 (0-1.0) k/uL Eosinophils # 0.1 (0-0.7) k/uL Basophils # 0.0 (0-0.2) k/uL Sodium 142 (137-145) mmol/L Potassium 4.4 (3.5-5.1) mmol/L Chloride 109 H (98-107) mmol/L Carbon Dioxide 27 (22-30) mmol/L Anion Gap 6 mmol/L BUN 9 (7-17) mg/dL Creatinine 0.66 (0.52-1.04) mg/dL Est GFR (CKD-EPI)AfAm >90 (>60 ml/min/1.73 sqM) Est GFR (CKD-EPI)NonAf >90 (>60 ml/min/1.73 sqM) Glucose 87 (74-99) mg/dL Calcium 9.5 (8.4-10.2) mg/dL Total Bilirubin 0.4 (0.2-1.3) mg/dL AST 23 (14-36) U/L ALT 25 (4-34) U/L Alkaline Phosphatase 58 (38-126) U/L Total Protein 6.9 (6.3-8.2) g/dL Albumin 4.3 (3.5-5.0) g/dL HCG, Quant 999.1 mIU/mL Urine Color Yellow Urine Appearance Cloudy H (Clear) Urine pH 7.0 (5.0-8.0) Ur Specific [place] 1.022 (1.001-1.035) Urine Protein Trace H (Negative) Urine Glucose (UA) Negative (Negative) Urine Ketones Negative (Negative) Urine Blood Negative (Negative) Urine Nitrite Negative (Negative) Urine Bilirubin Negative (Negative) Urine Urobilinogen 3.0 (<2.0) mg/dL Ur Leukocyte Esterase Large H (Negative) Urine RBC 9 H (0-5) /hpf Urine WBC 122 H (0-5) /hpf Ur Squamous Epith Cells 16 H (0-4) /hpf Amorphous Sediment Few H (None) /hpf Urine Bacteria Many H (None) /hpf Urine Mucus Occasional H (None) /hpf Blood Type Blood Type Recheck Bld Type Recheck Status 11/12/22 Range/Units 15:30 WBC (3.8-10.6) k/uL RBC (3.80-5.40) m/uL Hgb (11.4-16.0) gm/dL Hct (34.0-46.0) % MCV (80.0-100.0) fL MCH (25.0-35.0) pg MCHC (31.0-37.0) g/dL RDW (11.5-15.5) % Plt Count (150-450) k/uL MPV Neutrophils % % Lymphocytes % % Monocytes % % Eosinophils % % Basophils % % Neutrophils # (1.3-7.7) k/uL Lymphocytes # (1.0-4.8) k/uL Monocytes # (0-1.0) k/uL Eosinophils # (0-0.7) k/uL Basophils # (0-0.2) k/uL Sodium (137-145) mmol/L Potassium (3.5-5.1) mmol/L Chloride (98-107) mmol/L Carbon Dioxide (22-30) mmol/L Anion Gap mmol/L BUN (7-17) mg/dL Creatinine (0.52-1.04) mg/dL Est GFR (CKD-EPI)AfAm (>60 ml/min/1.73 sqM) Est GFR (CKD-EPI)NonAf (>60 ml/min/1.73 sqM) Glucose (74-99) mg/dL Calcium (8.4-10.2) mg/dL Total Bilirubin (0.2-1.3) mg/dL AST (14-36) U/L ALT (4-34) U/L Alkaline Phosphatase (38-126) U/L Total Protein (6.3-8.2) g/dL Albumin (3.5-5.0) g/dL HCG, Quant mIU/mL Urine Color Urine Appearance (Clear) Urine pH (5.0-8.0) Ur Specific [place] (1.001-1.035) Urine Protein (Negative) Urine Glucose (UA) (Negative) Urine Ketones (Negative) Urine Blood (Negative) Urine Nitrite (Negative) Urine Bilirubin (Negative) Urine Urobilinogen (<2.0) mg/dL Ur Leukocyte Esterase (Negative) Urine RBC (0-5) /hpf Urine WBC (0-5) /hpf Ur Squamous Epith Cells (0-4) /hpf Amorphous Sediment (None) /hpf Urine Bacteria (None) /hpf Urine Mucus (None) /hpf Blood Type A Positive Blood Type Recheck A Pos Bld Type Recheck Status No Disposition <Mary Byrnes - Last Filed: 11/12/22 15:18> Is patient prescribed a controlled substance at d/c from ED?: No Time of Disposition: 18:19 <Rochelle Castro - Last Filed: 11/12/22 23:21> Clinical Impression: Early stage of Disposition: HOME SELF-CARE Condition: Stable Instructions (If sedation given, give patient instructions): Threatened Miscarriage (ED) Additional Instructions: [place] return to the emergency department and vaginal bleeding, vaginal clots are pain past, back pain develop Please follow-up with Dr. Rojas's office within 1-2 days. Please return to the outpatient lab for serial hCG drawn in 48 hours Referrals: None,Stated [Primary Care Provider] - 1-2 days Carrie Rojas DO [Doctor of Osteopathic Medicine] - 1-2 days
[2022-11-12 15:54] LABS: Basophils % (A) 1 %; Eosinophils # (A) 0.1 k/uL (0-0.7); Eosinophils % (A) 1 %; HCT 41.2 % (34.0-46.0); HGB 13.9 gm/dL (11.4-16.0); Lymphocytes # (A) 2.8 k/uL (1.0-4.8); Lymphocytes % (A) 31 %; MCH 29.8 pg (25.0-35.0); MCHC 33.7 g/dL (31.0-37.0); MCV 88.3 fL (80.0-100.0); Mean Platelet Volume 8.1; Monocytes # (A) 0.5 k/uL (0-1.0); Monocytes % (A) 6 %; Neutrophils # (A) 5.3 k/uL (1.3-7.7); Neutrophils % (A) 60 %; Platelet Count 265 k/uL (150-450); RBC 4.67 m/uL (3.80-5.40); RDW 12.8 % (11.5-15.5); WBC 8.9 k/uL (3.8-10.6)
[2022-11-12 16:05] LABS: Amorphous Sediment,Urine Few /hpf; Appearance,Urine Cloudy (Clear); Bacteria,Urine Many /hpf; Bilirubin,Urine Negative (Negative); Blood,Urine Negative (Negative); Color,Urine Yellow; Glucose,Urine (UA) Negative (Negative); Ketones,Urine Negative (Negative); Leukocyte Esterase,Urine Large (Negative); Mucus,Urine Occasional /hpf; Nitrite,Urine Negative (Negative); Protein,Urine Trace (Negative); RBC,Urine 9 /hpf (0-5); Specific Gravity,Urine 1.022 (1.001-1.035); Squamous Epithelial Cell,Urine 16 /hpf (0-4); WBC,Urine 122 /hpf (0-5)
[2022-11-12 16:07] LABS: ALT 25 U/L (4-34); AST 23 U/L (14-36); African American GFR (CKD) >90 (>60 ml/min/1.73 sqM); Albumin 4.3 g/dL (3.5-5.0); Alkaline Phosphatase 58 U/L (38-126); Anion Gap 6 mmol/L; Blood Urea Nitrogen 9 mg/dL (7-17); Calcium 9.5 mg/dL (8.4-10.2); Carbon Dioxide 27 mmol/L (22-30); Chloride 109 mmol/L (98-107); Glucose 87 mg/dL (74-99); Non-African American GFR(CKD) >90 (>60 ml/min/1.73 sqM); Sodium 142 mmol/L (137-145); Total Bilirubin 0.4 mg/dL (0.2-1.3); Total Protein 6.9 g/dL (6.3-8.2)
[2022-11-12 16:23] LABS: HCG,Quantitative Serum 999.1 mIU/mL
[2022-11-12 16:35] LABS: Potassium 4.4 mmol/L (3.5-5.1)
--- NOTE | 2022-11-12 18:05 | US ---
EXAMINATION TYPE: Transabdominal DATE OF EXAM: 11/12/2022 5:51 PM COMPARISON: 04/22/2021 CLINICAL HISTORY: Abnormal OB US in office. OB office did not seen anything on US today. EXAM PERFORMED: Transvaginal (TV) and Transabdominal (TA) EXAM MEASUREMENTS: GESTATIONAL AGE / DATING Physician Established: Not yet established Dates by LMP: LMP unknown Dates by First Scan: No previous this is first scan Dates by Current Scan for: Unable to date by today's study MATERNAL ANATOMY Uterus: 9.3 x 7.9 x 4.8cm Right Ovary: 3.6 x 2.6 x 2.6cm Left Ovary: 3.6 x 2.7 x 2.4cm Post CDS / Adnexa: wnl Presence of free fluid: Trace amount in cul de sac Presence of corpus luteal cyst: No Presence of subchorionic bleed: No GESTATION / SURVEY CRL: Not seen MSD: Possibly seen measuring 0.96cm Yolk Sac (normal less than 6mm): Not seen IUP: Possible gest sac seen in endometrium Date of LMP: Unknown Beta HcG (if available): 999.1 Possible gestational sac seen in endometrium. hCG is 999 IMPRESSION: Small anechoic intrauterine cystic structure without evidence for yolk sac or pole at this time . This is thought to represent an early gestational sac with a positive beta hCG of 999.1 mIU/mL, ho wever ectopic and abnormal intrauterine cannot be ruled out based on this exam al one. Follow-up with pelvic ultrasound in 7-10 days and serial beta-hCG studies are recommended to en sure further development of the fetus.
[2022-11-12 18:33] VITALS: BP 120/78; PULSE 76; RESP 16; TEMP 97.6
== END 2022-11-12 18:33 | disposition home or self-care (01) ==
LOC: EC 14:40
DX: Z34.90 Encounter for supervision of normal pregnancy, unspecified, unspecified trimester (principal); Z88.0 Allergy status to penicillin
CPT/HCPCS: 36415; 76801; 76817; 80053; 81001; 84702; 85025; 86900; 86901; 87086; 99284